=== PATIENT | female | born 1925 | race Caucasian/White ===

== ENCOUNTER 2016-11-07 01:03 | Emergency (ER) | payer MEDICARE ==
[~2016-11-07] VITALS: Ht 162.6 cm; Wt 54.0 kg
[2016-11-07 01:07] VITALS: BP 150/60; PULSE 82; RESP 19; O2SAT 99
--- NOTE | 2016-11-07 01:11 | ED.REPORT ---
HPI-Hip/Pelvis Prob/Inj Date of Service November 07, 2016 ED Provider: Santana Cabrera MD Pt is an 89 y.o. female with a hx of dementia who presents to the ED via EMS from an [facility] c/o left hip pain. Per [facility] staff pt has "not been herself today" and they reported to EMS that she experienced 2 GLF's. Pt states that she had a brace on her right wrist, due to recent fracture, and that when she tried to get up from the toilet the Velcro on the brace had caught and caused her to fall onto the ground. She denies head injury and LOC. Pt is a poor historian due to her dementia. Nursing Notes Stated Complaint: GLF,R HIP PAIN Chief Complaint: Multiple Trauma/Fall Nursing Notes Reviewed: Yes Allergies: Coded Allergies: codeine (Unverified Allergy, Unknown, 11/07/16) morphine (Unverified Allergy, Unknown, 11/07/16) General Time Seen by Provider: 01:11 Chief Complaint Hip injury left Hx Obtained From: Patient Unable to Obtain Hx: Patient condition Onset Occurred: 13 - 16 hours ago Context of Onset: custodial care facility Symptom Duration: Since onset Location: Hip, L lateral aspect Quality: Painful Severity: Current: Moderate Severity: Maximum: Severe Past Medical History Past Medical History None reported Past Surgical History None reported Ambulatory Status Independent Review of Systems Unable to Obtain ROS Patient condition, Mental status Musculoskeletal: Reports: Joint pain (Left hip) Neurologic: Denies: Change LOC, Headache Complete sys rev & neg: except as marked. Physical Exam Initial Vital Signs Vital Signs (First) Date Time Temp Pulse Resp B/P Pulse Ox O2 Delivery O2 Flow Rate FiO2 11/07/16 01:07 36.8 82 19 150/60 99 Room Air Initial VS: Reviewed, Vital signs normal Abdomen / GI: No distention Upper Extremities: Vascular intact, Neuro intact Skin: Warm, Dry, No cyanosis Neurologic: Alert, Oriented, Nonfocal Psychiatric: Mood/affect normal, Behavior normal, Normal thought content Lower Extremity / Pelvis / MS: Atraumatic, No deformity, Neurologic intact, Vascular intact Left Hip: Positive: Tenderness present... (diffuse) General/Constitutional: Awake, Alert, Well appearing, Well developed, Well hydrated, Well nourished, Not toxic appearing Pt is a poor historian Head / Eyes: Atraumatic, Normocephalic, PERRL Respiratory / Chest: Atraumatic, Breath sounds NL, Breath sounds = bilat, No respiratory distress Cardiovascular: Heart rate NL, Regular rhythm, Heart sounds NL, Peripheral circulation NL Interpretation & Diagnostics X-Ray Interpretation Xray Interpretation: IMPRESSION: No fractures visualized. X-Ray Ordered: Pelvis Interpretation / Wet Read by: Wet read ED physician Interpretation: Normal exam, No fracture/dislocation Re-Eval/Medical Decision Med Decision/Clinical Course 89-year-old female with dementia presents with ground-level fall. She describes a slow slump to the ground but it is difficult to assess the validity of her history due to her dementia. She does have some bruising around the right hip and some tenderness around the left hip. X-ray examination is unremarkable. There is no evidence of other associated injury. She is being discharged back to her care facility. Source of Hx: Old records Counseled Regarding: Diagnosis, Lab results Discharge & Departure Impression: Primary Impression: Fall from ground level Disposition: Home Discharge Condition All VS Reviewed: Yes Condition: Improved Patient Instructions: Fall Prevention for Older Adults (GEN) Additional Instructions: The x-ray examination of the hip is normal. Bruises are evident on physical exam but no serious injury is found. [facility] and resume [facility] previous orders. Scribe Attestation Portions of this note were transcribed by Mey Durant. I, Dr. Cabrera personally performed the history, physical exam and medical decision-making; I reviewed and confirmed the accuracy of the information in the transcribed note. Signed by: Nena Lezama, 11/07/16 and 0425 Santana Caberra MD November 07, 2016 01:11 MEY DURANT November 07, 2016 01:42
[2016-11-07 04:33] VITALS: BP 137/76; PULSE 84; RESP 18; O2SAT 97
--- NOTE | 2016-11-07 09:05 | DRSVH ---
PROCEDURE: X-RAY PELVIS W/LAT HIP (RT) ([id number]) INDICATIONS: fall, right hip pain TECHNIQUE: AP pelvis with lateral view(s) of the right hip(s). COMPARISON: None. FINDINGS: Bones: No fractures or dislocations. 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 Pelvi c ring appears intact. No suspicious bony lesions. Moderate hip joint degeneration with joint narro wing and periarticular osteophyte formation, right greater than left. Degenerative change within the lumbar spine. Soft tissues: The visualized bowel gas pattern is normal. No suspicious soft tissue calcifications. Vascular calcifications indicate atherosclerosis. IMPRESSION: No acute displaced fracture seen. If there is continued pain, followup exam or addition al imaging such as MRI or CT could be performed for further assessment. Dictated by: Vasile Montgomery Fanta Interpreted: David Aparicio MD on 11/07/2016 at 9:03 Transcribed by: AUNG on 11/07/2016 at 9:05 Approved by: David Aparicio M.D. on 11/07/2016 at 9:43
== END 2016-11-07 04:34 | disposition home or self-care (01) ==
LOC: EDBD 01:03 → SED 01:03
DX: M25.552 Pain in left hip (principal); W01.0XXA Fall on same level from slipping, tripping and stumbling without subsequent striking against object, initial encounter; Y93.89 Activity, other specified; Y92.121 Bathroom in nursing home as the place of occurrence of the external cause; Y99.8 Other external cause status; Z88.5 Allergy status to narcotic agent